=== PATIENT | male | born 1990 | race Caucasian/White ===

== ENCOUNTER 2017-07-11 10:00 | Inpatient (IN) | payer OTHER ==
[~2017-07-11] VITALS: Ht 190.5 cm; Wt 81.6 kg
--- NOTE | ~2017-07-11 | PN ---
Unit #: [id number] #: [id number] Patient: EMELINA KENDALL [id number] [facility] [address] [place] [address] [id number] MR#: [id number] NAME: EMELINA KENDALL ROOM: [facility] Age: 27 Sex: M Admission Date: 07/11/2017 : 1990 Attending Physician: Asim Martini M.D. Admitting Physician: Asim Martini M.D. Primary Care Physician: Zacarias Gonzalez PROGRESS NOTES DATE 07/13/2017 DISCUSSION The patient remains seclusive to room with little participation within the therapeutic milieu. He continues to endorse hopelessness and suicidal ideation. He claims not to have been given information regarding homeless resources but the chart does indicate this information has been provided. I have again redirected the patient's expectations of inpatient care during today's interview. Dictated by... Asim Martini M.D. CB/barney TD: 07/13/2017 11:57 JOB #: [id number] [facility] PROGRESS NOTES Page 1 of 1 X Asim Martini MD X PROGRESS NOTE
--- NOTE | ~2017-07-11 | PN ---
Unit #: [id number] #: [id number] Patient: EMELINA KENDALL [id number] [facility] [address] [place] [address] [id number] MR#: [id number] NAME: EMELINA KENDALL ROOM: [facility] Age: 27 Sex: M Admission Date: 07/11/2017 : 1990 Attending Physician: Asim Martini M.D. Admitting Physician: Asim Martini M.D. Primary Care Physician: Zacarias Gonzalez PROGRESS NOTES DATE 07/12/2017 DISCUSSION The patient remains seclusive to room. He was served with an EPO by family members last night and cannot even contact them. As a result he is essentially homeless at this time. He will be given information regarding local homeless shelters. The patient reported this morning that he wished to leave the hospital "so I can commit suicide." It would seem rather clear that this was a manipulative threat, particularly given the patient's extensive history of inpatient and outpatient psychiatric treatment. We continue suicide precautions and will continue previously prescribed Cymbalta. Dictated by... Asim Martini M.D. CB/jordan TD: 07/12/2017 13:40 JOB #: [id number] [facility] PROGRESS NOTES Page 1 of 1 X Asim Martini MD X PROGRESS NOTE
--- NOTE | ~2017-07-11 | PN ---
Unit #: [id number] #: [id number] Patient: EMELINA KENDALL [id number] [facility] [address] [place] [address] [id number] MR#: [id number] NAME: EMELINA KENDALL ROOM: [facility] Age: 27 Sex: M Admission Date: 07/11/2017 : 1990 Attending Physician: Asim Martini M.D. Admitting Physician: Asim Martini M.D. Primary Care Physician: Zacarias Gonzalez PROGRESS NOTES DATE 07/15/2017 DISCUSSION The patient continues to express interest in residential chemical dependence treatment. He is reporting some reduction in suicidal thinking today. We continue current treatment and await word regarding possible admission to a residential treatment facility related to his history of methamphetamine abuse. Dictated by... Asim Martini M.D. CB/barney TD: 07/15/2017 12:54 JOB #: [id number] [facility] PROGRESS NOTES Page 1 of 1 X Asim Martini MD X PROGRESS NOTE
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
--- NOTE | ~2017-07-11 | PN ---
Unit #: [id number] #: [id number] Patient: EMELINA KENDALL [id number] [facility] [address] [place] [address] [id number] MR#: [id number] NAME: EMELINA KENDALL ROOM: [facility] Age: 27 Sex: M Admission Date: 07/11/2017 : 1990 Attending Physician: Asim Martini M.D. Admitting Physician: Asim Martini M.D. Primary Care Physician: Zacarias Gonzalez PROGRESS NOTES DATE 07/14/2017 DISCUSSION The patient continues to complain of severe depression and feelings of hopelessness related to his estrangement from his family and is reporting positive suicidal ideation at the same time he is expressing interest in residential chemical dependence treatment related to his history of psychostimulant abuse. I will ask his social media developer to see him regarding this. Dictated by... Asim Martini M.D. CB/sheba TD: 07/14/2017 22:14 JOB #: [id number] [facility] PROGRESS NOTES Page 1 of 1 X Asim Martini MD X PROGRESS NOTE
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
[2017-07-12 09:55] LABS: BASOPHIL% 0.8 % (0-2.5); EOSINOPHIL% 0.7 % (0.0-7.0); HEMATOCRIT 39.5 % (38.0-50.0); HEMOGLOBIN 13.3 gm/dL (13.0-16.0); LYMPHOCYTE# 2.1 X10e3 (1.0-3.5); LYMPHOCYTE% 34.5 % (17.0-45.0); MEAN CELL VOLUME 90.9 FL (83-96); MEAN CORPUSCULAR HEMOGLOBIN 30.7 PG (28-34); MEAN CORPUSCULAR HGB CONC 33.8 g/dL (30-36); MEAN PLATELET VOLUME 8.6 FL (6.5-11.5); MONOCYTE# 0.6 X10e3 (0-1.0); MONOCYTE% 9.7 % (3.0-12.0); NEUTROPHIL# 3.3 X10e3 (1.5-7.1); NEUTROPHIL% 54.3 % (40-75); PLATELET COUNT 291 X10e3 (140-420); RED BLOOD COUNT 4.34 X10e (3.90-5.60); RED CELL DISTRIBUTION WIDTH 13.5 % (11.0-15.5); WHITE BLOOD COUNT 6.1 X10e3 (4.0-10.5)
[2017-07-12 10:10] LABS: ALBUMIN SERUM 3.9 g/dL (3.5-5.0); BILIRUBIN,TOTAL 0.6 mg/dL (0.2-2.0); CALCIUM SERUM 9.4 mg/dL (8.4-10.2); CREATININE SERUM 0.6 mg/dL (0.6-1.4); GLOM FILT RATE Estimated 139.8 mL/min (>60); POTASSIUM 4.2 mmol/L (3.5-5.1); PROTEIN TOTAL SERUM 6.3 g/dL (6.0-8.3)
[2017-07-12 10:14] LABS: DIFF IND NO
[2017-07-14 12:42] LABS: URINE APPEARANCE TURBID; URINE BILIRUBIN NEG (NEG); URINE BLOOD NEG (NEG); URINE COLOR DK YELLOW; URINE GLUCOSE NEG (NEG); URINE KETONE 1+ (NEG); URINE LEUKOCYTE ESTERASE NEG (NEG); URINE NITRATE NEG (NEG); URINE PROTEIN 2+ (NEG); URINE SPECIFIC GRAVITY 1.025 (1.003-1.035)
[2017-07-14 12:47] LABS: URINE BACTERIA AUWI NEG (NEGATIVE); URINE SQUAMOUS EPITHELIAL CELL NONE SEEN /[HPF]
== END 2017-07-16 17:45 | disposition home or self-care (01) | DRG 885 ==
LOC: P2L 12:18
PROVIDERS: Specialist
DX: F31.81 Bipolar II disorder (principal); R45.851 Suicidal ideations; F34.1 Dysthymic disorder; F15.90 Other stimulant use, unspecified, uncomplicated
CPT/HCPCS: 80053; 81003; 85025